=== PATIENT | female | born 1960 | race Caucasian/White ===

== ENCOUNTER 2022-12-01 09:46 | Outpatient (CLI) | payer OTHER, SELFPAY ==
--- NOTE | 2022-12-01 10:49 | ECG_ITS ---
Measurements Intervals [place] Rate: 68 P: 49 WI: 169 QRS: 46 QRSD: 94 T: 23 QT: 379 QTc: 405 Interpretive Statements SINUS RHYTHM DELAYED PRECORDIAL R/S TRANSITION BASELINE ARTIFACT- I, II, III, AVR, AVL, AVF, V1-V6 BORDERLINE ECG NO PREVIOUS ECG AVAILABLE FOR COMPARISON Electronically Signed On 12-01-2022 11:29:15 CDT by Nakul Mooney D.O.
[2022-12-01 11:42] LABS: Basophils Absolute Auto 0.1 K/mm3 (0.0-0.1); Basophils Percent Auto 0.9 % (0.2-1.2); Eosinophils Absolute Auto 0.4 K/mm3 (0-0.3); Hematocrit 41.2 % (37.0-47.0); Hemoglobin 13.4 g/dL (12.0-15.0); Immature Granulocyte Absolute 0.03 K/mm3 (0.00-0.031); Immature Granulocyte Percent A 0.4 % (0-0.5); Lymphocytes Absolute Auto 1.54 K/mm3 (0.9-3.2); Mean Corpuscular HGB Conc 32.5 g/dl (32-36); Mean Corpuscular Hemoglobin 30.6 pg (26-34); Mean Corpuscular Volume 94.1 fl (80-100); Mean Platelet Volume 12.4 fl (7.4-10.4); Monocytes Absolute Auto 0.8 K/mm3 (0.1-0.6); Monocytes Percent Auto 10.1 % (2.6-8.5); Neutrophils Absolute Auto 5.3 K/mm3 (1.3-6.7); Neutrophils Percent Auto 64.6 % (45.5-73.1); Platelet Count Result 226 k/mm3 (150-375); Red Blood Count 4.38 M/mm3 (4.2-5.4); Red Cell Distribution Width 12.8 % (11.5-14.5); White Blood Count 8.1 K/mm3 (4.5-10.0)
[2022-12-01 11:54] LABS: Alanine Aminotransferase 22 U/L (6-35); Albumin Level 4.3 g/dL (3.5-5.1); Alkaline Phosphatase 83 U/L (38-126); Anion Gap 5 mmol/L (8-16); Aspartate Amino Transferase 26 U/L (14-36); Bilirubin,Total 0.5 mg/dL (0.2-1.3); Blood Urea Nitrogen 13 mg/dL (7-17); Calcium 9.3 mg/dL (8.4-10.2); Carbon Dioxide 29 mmol/L (22-30); Chloride 105 mmol/L (98-107); Estimated Glomerular Filt Rate > 60; Glucose 79 mg/dL (65-110); Potassium 3.9 mmol/L (3.4-5.0); Sodium 139 mmol/L (137-145)
[2022-12-01 12:03] LABS: Prothrombin Time 13.1 Seconds (11.1-14.7)
[2022-12-01 12:04] LABS: Partial Thromboplastin Time 25.2 SECONDS (22.3-36.8)
== END 2022-12-01 09:47 | disposition home or self-care (01) ==
LOC: ANHSURGERY 09:55
PROVIDERS: PCP Internal Medicine; Visit Provider Urology
DX: Z01.818 Encounter for other preprocedural examination (principal); N81.2 Incomplete uterovaginal prolapse
CPT/HCPCS: 36415; 80053; 85025; 85610; 85730; 86850; 86900; 86901; 93005

== ENCOUNTER 2022-12-14 00:38 | Day surgery (SDC) | payer OTHER, SELFPAY ==
--- NOTE | 2022-12-01 09:51 | PC.NURSE ---
PRE-OP INSTRUCTIONS - PLEASE READ CAREFULLY Report to the Outpatient Waiting Room, entrance under the green pavilion located off [facility], at time _0600_ on date _12/14/22_. Planned Procedure Time: _0730_. PACK A SMALL OVERNIGHT BAG AND LEAVE IN THE CAR Time changes happen often and if your time is changed the preop area will call you the afternoon before. - You and your visitor will be asked to self-screen and do not enter if you have any COVID symptoms. - Only one visitor is requested with a max of two and NO children visitors are allowed at this time. - The patient visitor may be requested to leave or wait in car when not with patient due to distancing restrictions. - A mask is optional within the hospital at this time. -VISITING HOURS 8AM-8PM Patients may have clear liquids (water, carbonated beverages, clear teas, apple juice) until 3 hours prior to surgery (0430 AM) with a maximum of 20 ounces. - No food from midnight until time of surgery Take the following medications with a SIP of water the morning of surgery: _MONTELUKAST__ DO NOT STOP ANY OF YOUR OTHER PRESCRIPTION MEDICATIONS PRIOR TO SURGERY ?EXCEPT THE FOLLOWING Medications to discontinue DR. KYLE - _VITAMINS AND SUPPLEMENTS 7 DAYS PRIOR TO SURGERY, Date to take last dose_12/06/22_ Please no make-up, nail citizen of [place], hairspray, perfume, deodorant, or body powder the day of surgery. No jewelry (including any body piercings) or valuables the day of surgery, leave them at home. Please take a shower or bath the night before, or the morning of, surgery with an antibacterial soap. Wear comfortable, loose fitting clothing. - Jewelry must be removed prior to entering the operating room. Rings and piercings that are not removed may be cut off. - The hospital will not accept responsibility for valuables. - Please leave all valuables, including medications, at home the day of surgery. If you are going home after surgery, a licensed escort car driver must drive you home. - NO public transportation without another adult if you receive anesthesia. - We recommend that an adult stay with you for 24 hours following discharge. - We also recommend that you do not drive, make important decision, drink alcoholic beverages, or take any drugs that were not prescribed by your health care provider for at least 24 hours after your discharge time. Follow any additional instructions given to you from your surgeon. If you or anyone in your household have experienced Covid symptoms in the past week, please notify your surgeon or the nurse liaison at the phone number below for possible testing. Instructions given to _PATIENT_and asked if any additional questions and then verbalized understanding. Patient advised to call surgeon office or pre surgery nurse liaison [phone] if any additional questions.
[2022-12-01 10:13] VITALS: BP 132/52; PULSE 76; RESP 18; TEMP 37.1; O2SAT 99; BMI 25.2
--- NOTE | 2022-12-10 16:14 | P.HP_ITS ---
H&P: HPI History of Present Illness Date/Time: 12/10/22 16:14 Chief Complaint: uterine prolapse Narrative: a 62-year-old 1 para 1 admitted for robotic supracervical hysterectomy and bilateral salpingo-oophorectomy secondary to pelvic prolapse. She seen Dr. Becker use and agreement she is also scheduled to have sacral colpopexy done. Her she complains of bulge discomfort and pain. Risks and benefits have been reviewed PMFSH Social History Social History Smoking status: Never smoker Second hand tobacco smoke exposure: No Alcohol intake: current Alcohol use details: 2-3/WEEK Substance use: never Substance use type: does not use Living arrangements: with family Spiritual care concerns: No Meds Home Medications and Allergies Home Medications Medication Instructions Recorded Confirmed Type biotin 2,500 mcg capsule 2,500 mcg PO QAM 12/01/22 12/01/22 History calcium carb,cit ER 600 mg-vit D3 2 tablet PO QAM 12/01/22 12/01/22 History 12.5 mcg (500 unit) tablet,ext.rel (Citracal-D3 Slow Release) cholecalciferol (vitamin D3) 50 50 mcg PO DAILY 12/01/22 12/01/22 History mcg (2,000 unit) capsule famotidine 20 mg tablet 40 mg QAM 12/01/22 12/01/22 History (Zantac-360 (famotidine)) montelukast 10 mg tablet 10 mg PO QAM 12/01/22 12/01/22 History naproxen sodium 220 mg tablet 440 mg PO DAILY PRN Pain 12/01/22 12/01/22 History (Aleve) tacrolimus 0.03 % topical ointment See Rx Instructions .Route .COMPLEX 12/01/22 12/01/22 History Allergies Allergy/AdvReac Type Severity Reaction Status Date / Time adhesive tape AdvReac SKIN Verified 12/01/22 10:18 IRRITATION amoxicillin AdvReac UNKNOWN - Verified 12/01/22 10:18 A CHILD codeine AdvReac A CHILD Verified 12/01/22 10:18 - RASH? erythromycin base AdvReac Unknown - Verified 12/01/22 10:18 A CHILD Exam Const: General: cooperative, healthy appearing and comfortable Nutritional Appearance: average body habitus Orientation/consciousness: oriented to person, oriented to place and oriented to time HENMT: Head: normal to inspection Resp: Effort & Inspection: normal respiratory effort Cardio: Rate: regular rate Rhythm: regular rhythm Heart sounds: S1 normal heart sound present and S2 normal heart sound present GI: Inspection: normal to inspection : External Female Exam: normal external appearance Speculum Exam - Vagina: normal appearance of the vagina ( poles of the vagina and cervix at the opening of the vagina) Speculum Exam - Cervix: normal appearance of the ce rvix and Cervical os closed Bimanual exam- vagina & uterus: uterine size normal Bimanual Exam- Adnexa, other: normal adnexae Assessment and Plan Assessment and plan (1) Uterine prolapse: Code(s): N81.4 - Uterovaginal prolapse, unspecified Status: Acute Plan proceed with robotic supracervical hysterectomy and bilateral salpingo- oophorectomy. Dr. Becker will follow with the robotic sacral colpopexy
--- NOTE | 2022-12-12 13:15 | P.HP_ITS ---
H&P: HPI History of Present Illness Date/Time: 12/12/22 13:15 Chief Complaint: POP/EUGENIA Narrative: 62 you with uterine prolpase and stress incontinence. She desires surgical correction Review of Systems Review of Systems: All systems reviewed & are unremarkable except as noted in HPI and below [facility] Social History Social History Smoking status: Never smoker Second hand tobacco smoke exposure: No Alcohol intake: current Alcohol use details: 2-3/WEEK Substance use: never Substance use type: does not use Living arrangements: with family Spiritual care concerns: No Meds Home Medications and Allergies Home Medications Medication Instructions Recorded Confirmed Type biotin 2,500 mcg capsule 2,500 mcg PO QAM 12/01/22 12/01/22 History calcium carb,cit ER 600 mg-vit D3 2 tablet PO QAM 12/01/22 12/01/22 History 12.5 mcg (500 unit) tablet,ext.rel (Citracal-D3 Slow Release) cholecalciferol (vitamin D3) 50 50 mcg PO DAILY 12/01/22 12/01/22 History mcg (2,000 unit) capsule famotidine 20 mg tablet 40 mg QAM 12/01/22 12/01/22 History (Zantac-360 (famotidine)) montelukast 10 mg tablet 10 mg PO QAM 12/01/22 12/01/22 History naproxen sodium 220 mg tablet 440 mg PO DAILY PRN Pain 12/01/22 12/01/22 History (Aleve) tacrolimus 0.03 % topical ointment See Rx Instructions .Route .COMPLEX 12/01/22 12/01/22 History Allergies Allergy/AdvReac Type Severity Reaction Status Date / Time adhesive tape AdvReac SKIN Verified 12/01/22 10:18 IRRITATION amoxicillin AdvReac UNKNOWN - Verified 12/01/22 10:18 A CHILD codeine AdvReac A CHILD Verified 12/01/22 10:18 - RASH? erythromycin base AdvReac Unknown - Verified 12/01/22 10:18 A CHILD Exam Narrative: Thin NAD normal breathing + urethral mobility Anterior wall +2 [place] -1 Assessment and Plan Assessment and plan (1) Uterine prolapse: Code(s): N81.4 - Uterovaginal prolapse, unspecified Status: Acute (2) EUGENIA (stress urinary incontinence, female): Code(s): N39.3 - Stress incontinence (female) (male) Status: Acute Plan Robotic Colpopexy with sling. Risks, benifits, alternatives discussed
[2022-12-14] VITALS (22 sets, daily range): BP systolic 94–131; BP diastolic 51–88; PULSE 68–99; RESP 12–19; TEMP 36.1–37.7; O2SAT 95–100
[2022-12-14] MEDS: LACTATED RINGERS 1,000 ML 30 ML IV CONT ×2 (06:25→09:55)
[2022-12-14] MEDS: ACETAMINOPHEN 500 MG TABLET 1000 MG PO (06:26)
[2022-12-14] MEDS: KETOROLAC 15 MG/ML VIAL (*BKC) IV PUSH ×3 (06:26→23:55)
--- NOTE | 2022-12-14 06:51 | WPDANESEPPF ---
Anes - Initial Pre Proc Eval Procedure: Operation Date: 12/14/22 07:30 Proposed Procedures p Robotic Sacrocolpopexy, Urethral Sling - Demond Becker MD s Robotic Assisted Supracervical Hysterectomy, Bilateral Salpingo-oophorectomy - Sotero Mcnulty MD Date/Time: 12/14/22 06:51 Surgeon: Demond Becker MD Pre Op Diagnosis: incomplete uterovaginal prolapse, stress inconti Patient Data Age: 62 Gender: F Height: 1.63 m Weight: 66.8 kg Last Vital Signs Temp 37.1 C 12/01/22 10:13 Pulse 76 12/01/22 10:13 Resp 18 12/01/22 10:13 BP 132/52 L 12/01/22 10:13 Pulse Ox 99 12/01/22 10:13 O2 Del Method Room Air 12/01/22 10:13 Allergies Allergy/AdvReac Type Severity Reaction Status Date / Time adhesive tape AdvReac SKIN Verified 12/01/22 10:18 IRRITATION amoxicillin AdvReac UNKNOWN - Verified 12/01/22 10:18 A CHILD codeine AdvReac A CHILD Verified 12/01/22 10:18 - RASH? erythromycin base AdvReac Unknown - Verified 12/01/22 10:18 A CHILD Home Medications Medication Instructions Recorded Confirmed Type biotin 2,500 mcg capsule 2,500 mcg PO QAM 12/01/22 12/01/22 History calcium carb,cit ER 600 mg-vit D3 2 tablet PO QAM 12/01/22 12/01/22 History 12.5 mcg (500 unit) tablet,ext.rel (Citracal-D3 Slow Release) cholecalciferol (vitamin D3) 50 50 mcg PO DAILY 12/01/22 12/01/22 History mcg (2,000 unit) capsule famotidine 20 mg tablet 40 mg QAM 12/01/22 12/01/22 History (Zantac-360 (famotidine)) montelukast 10 mg tablet 10 mg PO QAM 12/01/22 12/01/22 History naproxen sodium 220 mg tablet 440 mg PO DAILY PRN Pain 12/01/22 12/01/22 History (Aleve) tacrolimus 0.03 % topical ointment See Rx Instructions .Route .COMPLEX 12/01/22 12/01/22 History Patient hx anesthesia problems: none Family hx anesthesia problems: none Results Review: All pre-operative results and documents have been reviewed as part of the pre-operative evaluation. [facility] Past Medical History Medical History (Updated 12/14/22 @ 06:52 by Nickolas Shultz MD) Asthma Uterine prolapse Social History Social History Smoking status: Never smoker Second hand tobacco smoke exposure: No Alcohol intake: current Alcohol use details: 2-3/WEEK Substance use: never Substance use type: does not use Living arrangements: with family Spiritual care concerns: No Anes - Eval Final PreProcedure Day of Procedure 12/14/22 06:51 Patient weight: normal Heart: regular rate and rhythm Lungs: clear to auscultation and normal air movement Airway: Mallampati scale class II Neurological: alert and oriented Last oral intake: >/= 8 hours ASA classification: II Emergent: no Anesthetic plan: proceed Anesthesia type and monitoring: general ETT Results Review: All pre-operative results and documents have been reviewed as part of the pre-operative evaluation. Informed Consent: The patient's anesthetic plan and its attendant risks and benefits were discussed with the patient/family/POA. Questions were solicited and answers provided to the satisfaction of the patient/family/POA.
--- NOTE | 2022-12-14 07:04 | WPDHPUPDATE1 ---
History and Physical Update Update Date/Time: 12/14/22 07:04 History and Physical has been reviewed, including an updated exam of the patient. There are NO changes in the patient's condition. Risks, benefits, and alternatives have been discussed and questions answered. Patient agrees to proceed with procedure.
--- NOTE | 2022-12-14 07:12 | WPDHPUPDATE1 ---
History and Physical Update Update Date/Time: 12/14/22 07:12 History and Physical has been reviewed, including an updated exam of the patient. There are NO changes in the patient's condition. Risks, benefits, and alternatives have been discussed and questions answered. Patient agrees to proceed with procedure.
[2022-12-14] MEDS: ceFAZolin 2 GM/D5W 50 ML 2 GM/50 ML BAG IVPB (07:28)
[2022-12-14] MEDS: metroNIDAZOLE 500 MG/ISO 100ML 500 MG/100 ML BAG 100 MG IVPB ×2 (07:38→16:45)
--- NOTE | 2022-12-14 08:11 | P.OP_ITS ---
Procedure Note - Detailed Date of Procedure 12/14/22 Pre-op Diagnosis incomplete uterovaginal prolapse, stress inconti Post-op Diagnosis Same Procedure Performed Robotic supracervical hysterectomy and bilateral salpingo-oophorectomy Surgeon Sotero Mcnulty MD Anesthesia General Indications a 62-year-old female with uterine prolapse stress urinary incontinence Findings small uterus it was almost completely prolapse. Small ovaries and tubes. Few adhesions from the colon to the left lateral sidewall which were loosely brought down. Description of Procedure Patient was prepped and draped in the normal sterile fashion placed dorsal lithotomy position. Under excellent general anesthetic the weighted speculum placed in posterior fornix vagina. Anterior lip of cervix grasped with single- tooth tenaculum. The Crespo's cannula inserted the cervix and attached to the single-tooth. These would be used later for uterine manipulation. Next the 16 [place] catheter was placed in bladder and drained of clear urine. The weighted speculum was. Dr. Becker proceeded to placed the ports and docked the robot please see his operative report for full details. From that point the left round ligament was grasped, burned, cut. Anterior bladder flap was by sharply dissecting the peritoneum and reflecting the bladder post caudally away from the uterus and cervix to the opposite round ligament was clamped, burned cut. Next the infundibulopelvic structures were skeletonized behind ovary. These were clamped, burned, cut brought to the level previously cut in like fashion the left ovary to the infundibulopelvic structure was skeletonized clamping as previously cut round ligament. Next the left cardinal and broad ligaments were skeletonized clamping burning cutting and hugging the cervix to avoid to lateral structures the uterine vessels were noted clamped, burned, cut. Like fashion cardinal broad ligaments right were serially skeletonized clamping burning cutting and hugging the cervix uterus until the uterine vessels could be seen on right. These were individually clamped,, cut. Blanching of the uterus was seen. A supracervical incision made and this was placed in the Endo-Catch up. Adhesions on colon to left lateral sidewall sharply dissected attached to help Dr. Lopez with the sacral colpopexy. Blood loss to this point was 5cc. All sponge, needle, instrument counts were correct. There were no immediate complications up to this point Estimated Blood Loss 5 Drains No Packing No Pathology Yes Complications No immediate complications Condition Stable Disposition No change
[2022-12-14] MEDS: BUPIVACAINE/EPINEPHRINE 0.25% 50 ML VIAL INFILTRATE (09:22)
--- NOTE | 2022-12-14 09:26 | SUR.OPER ---
ALPHONSE START TIME 3405
--- NOTE | 2022-12-14 09:59 | W.PM.PROC2 ---
Procedure Note - Detailed Date of Procedure 12/14/22 Pre-op Diagnosis incomplete uterovaginal prolapse, stress incontinence Post-op Diagnosis Same Procedure Performed Robotic assisted laparoscopic sacral colpopexy Urethral sling Cystoscopy Surgeon Demond Becker MD Hydrology Teacher josh powers Anesthesia General Indications A woman with uterine prolapse as well as stress incontinence. She desires surgical correction. She is here for the above. She understands risks of bleeding, infection, diskitis, damage to surrounding organs, bowel injury, bowel obstruction, mesh related complications including exposure and extrusion, postoperative voiding dysfunction including incontinence and retention, need for ancillary procedures, dyspareunia, recurrence of prolapse, and other perioperative intraoperative postoperative complications. She agrees to proceed. Findings See below Description of Procedure She was correctly identified. Informed consent obtained. She from the operating room. She was given general anesthesia. She was given appropriate perioperative antibiotics. She was placed a low lithotomy position. Pressure points were padded. A time-out performed. I marked out the skin 3 fingerbreadths cephalad to the umbilicus. I anesthetized the skin. I incised the skin. I dissected down to the fascia. I grasped the fascia with Belén clamps. I entered the fascia sharply in a Farrell type technique. I placed sutures for later fascial closure. I placed a midline trocar. I examined the abdomen. There is no sign of any injury. Under direct vision I placed 2 additional trocars in the right upper quadrant and 2 additional trocars the left upper quadrant. She was placed in steep Trendelenburg. The robot was docked. Her denture model maker completed their portion of the procedure. Please see that operative report for details. I then sat at the console. The Sizer in the vagina created plane on the anterior and posterior vaginal wall. I took great care not to injure the vagina, bladder, or rectum. I introduced the mesh into the abdomen. I sewed the anterior leaflet of mesh on the anterior vaginal wall. I sewed the posterior leaflet of mesh on the posterior vaginal wall. This was done with several sutures of 2 0 [place]. I reflected the colon laterally. I opened the posterior peritoneum over the sacral promontory. I carried this into the cul-de-sac. I freed up the edges for later retroperitonealization. I located the anterior longitudinal ligament the sacrum. I cleaned off all fatty tissues. I then tensioned my mesh appropriately. I did a vaginal exam the bedside. I assured prolapse reduction without undue tension. I then sewed the proximal leaflet of mesh onto the anterior longitudinal ligament of the sacrum with several sutures of 2 0 [place]. I then used a 2 0 Monocryl to completely and meticulously retroperitonealized all mesh. I allowed the colon to go back to its normal anatomic location. There is no sign of any impingement. The specimen was then removed. All ports removed. Fascia was tied down. An additional suture was used to close the fascia. Skin was closed with Monocryl and surgical glue. She was repositioned and prepped for urethral sling. I marked out the inner thigh incisions. I anesthetized the skin and made the incisions. I then anesthetized the anterior vaginal wall at the mid urethra. I made a 1 cm incision. I dissected out laterally taking great care not to injure the refilled vaginal wall. I passed the helical trocars. I did this 1st on the left and then on the right. This was done from the thigh incision towards the vaginal incision. Sling was connected to the trocars and brought out the thigh incision. I tensioned the sling appropriately. I cut and the plastic sheaths. I closed the incision with 2 0 Vicryl. I palpated the sulcus bilaterally to ensure there was no exposed mesh. I then performed cystoscopy. There w
[2022-12-14] MEDS: fentaNYL CITRATE INJ (*CRX) 100 MCG/2 ML VIAL 25 MCG IV PUSH ×7 (10:21→13:53)
[2022-12-14] MEDS: ONDANSETRON INJ 4 MG/2 ML VIAL IV PUSH (11:16)
--- NOTE | 2022-12-14 14:20 | PC.NURSE ---
This patient, Sharmin Lawson, was received from PACU on 12/14/22 at 1420. Patient/family oriented to unit policies and routines.
[2022-12-14] MEDS: KCL 20 MEQ/D5/0.45% SOD CHL 1,000 ML 100 ML IV CONT ×2 (14:37→23:49)
[2022-12-14] MEDS: ceFAZolin 1 GM/NS 50 ML 1 GM/50 ML BAG IVPB (16:04)
[2022-12-14] MEDS: HYDROcodone/acetaminophen (*CRX) 5-325 MG TABLET 1 TAB PO ×2 (20:09→23:55)
[2022-12-15 00:05] VITALS: BP 120/61; PULSE 66; RESP 16; TEMP 36.9; O2SAT 100
[2022-12-15] MEDS: metroNIDAZOLE 500 MG/ISO 100ML 500 MG/100 ML BAG 100 MG IVPB ×2 (00:39→09:00)
[2022-12-15] MEDS: HYDROcodone/acetaminophen (*CRX) 5-325 MG TABLET 1 TAB PO ×2 (03:50→09:42)
[2022-12-15 04:00] VITALS: BP 115/57; PULSE 71; RESP 16; TEMP 36.8; O2SAT 97
--- NOTE | 2022-12-15 05:37 | P.DS_ITS ---
DS: Admitting Diagnosis Discharge Date 12/15/2022 Admitting Diagnosis uterine prolapse/stress urinary incontinence DS: Discharge Diagnosis Discharge Diagnosis (1) Uterine prolapse: Code(s): N81.4 - Uterovaginal prolapse, unspecified Status: Acute (2) EUGENIA (stress urinary incontinence, female): Code(s): N39.3 - Stress incontinence (female) (male) Status: Acute DS: Summary Hospital Course Reason for hospitalization: patient was admitted for robotic supracervical hysterectomy bilateral salpingo- oophorectomy and sling as well as sacral colpopexy Hospital Course: patient was admitted for robotic supracervical hysterectomy bilateral salpingo- oophorectomy sacral colpopexy and urethral sling. Her hospital course u nremarkable. She remained afebrile. She was up, voiding without difficulty, eating regular diet, ambulating, generally without complaints. Time Spent with Patient Time attestation: Total time spent providing and/or coordinating discharge services: Exam Const: General: cooperative, healthy appearing, comfortable and well groomed Orientation/consciousness: oriented to person, oriented to place and oriented to time HENMT: Head: normal to inspection Chest: Chest palpation & inspection: normal inspection of the chest Resp: Effort & Inspection: normal respiratory effort Cardio: Rate: regular rate Rhythm: regular rhythm Heart sounds: S1 normal heart sound present and S2 normal heart sound present GI: Inspection: normal to inspection and incision ( Wounds clean dry and intact) Auscultation: normal bowel sounds DS: Data Data Completed and Pending Pending studies at discharge: Pending at discharge 12/14/22 08:14 Surgical [PTH] Routine Discharge Plan Discharge Patient Disposition: Home, Self-Care Discharge Instructions: No lifting >20lb, exercise for 6 weeks No tub bath or pool for 2 weeks No intercourse for 6 weeks Stand Alone Forms: General Discharge Instructions Follow-up/Referrals: Demond Becker MD [Physician] - ( 6 weeks as scheduled) Sotero Payne MD [Physician] - Discharge Medications: New docusate sodium [Colace] 100 mg capsule 100 mg PO BID Qty: 60 0RF hydrocodone-acetaminophen 5-325 mg tablet 1 tablet PO Q6H PRN (Reason: pain) Qty: 20 0RF Continued famotidine [Zantac-360 (famotidine)] 20 mg Tablet 40 mg QAM naproxen sodium [Aleve] 220 mg Tablet 440 mg PO DAILY PRN (Reason: Pain) montelukast 10 mg Tablet 10 mg PO QAM biotin 2,500 mcg Capsule 2,500 mcg PO QAM cholecalciferol (vitamin D3) 50 mcg (2,000 unit) Capsule 50 mcg PO DAILY calcium carb and citrate-vitD3 [Citracal-D3 Slow Release] 600 mg-12.5 mcg (500 unit) Tablet Extended Release 2 tablet PO QAM tacrolimus 0.03 % ointment See Rx Instructions .ROUTE .COMPLEX Rx Instructions: APPLY SMALL AMOUNT TO OUTER EYELID DAILY
--- NOTE | 2022-12-15 05:50 | PM.GYNPNOP ---
BIOCHEMISTRY TECHNICIAN - A/P Postoperative Procedures: Procedures Operation Date: 12/14/22 07:30 Actual Procedure Side Surgeon p Robotic Sacrocolpopexy, Urethral Sling Not Applicable Demond Becker MD s Robotic Assisted Supracervical Hysterectomy, Bilateral Salpingo-oophorectomy Bilateral Sotero Mcnulty MD Postoperative day: 1 Postoperative status: doing well Postoperative plan: routine post-op care, see orders, advance diet and discharge Time Spent With Patient Time: Total time spent is greater than 50% in coordination of care (as documented) at patient's floor/unit and/or counseling patient: Time with patient: less than 15 minutes BIOCHEMISTRY TECHNICIAN- PN:Subj Post-Op Subjective Date/time seen: 12/15/22 05:50 Subjective: patient has no complaints, patient desires discharge, pain is well controlled and patient is tolerating oral intake Exam Const: General: cooperative, healthy appearing, comfortable and well groomed Orientation/consciousness: oriented to person, oriented to place and oriented to time HENMT: Head: normal to inspection Resp: Effort & Inspection: normal respiratory effort Cardio: Rate: regular rate Rhythm: regular rhythm Heart sounds: S1 normal heart sound present and S2 normal heart sound present GI: Inspection: normal to inspection and incision ( wounds are clean dry and intact) BIOCHEMISTRY TECHNICIAN - PN: Obj Data Vital Signs Vital Signs: Vital Signs - 24 hr 12/14/22 06:07 12/14/22 09:55 12/14/22 10:10 Temperature 97.3 F L 97 F L Pulse Rate 82 89 78 Respiratory Rate 18 13 18 Blood Pressure 131/56 L 119/70 122/88 Pulse Oximetry 100 100 100 Oxygen Delivery Room Air Simple Face Mask Simple Face Mask Oxygen Flow Rate 6 6 12/14/22 10:25 12/14/22 10:40 12/14/22 10:55 Temperature Pulse Rate 68 71 71 Respiratory Rate 16 13 16 Blood Pressure 95/54 L 104/53 L 101/53 L Pulse Oximetry 97 99 98 Oxygen Delivery Room Air Room Air Room Air Oxygen Flow Rate 12/14/22 11:10 12/14/22 11:24 12/14/22 11:35 Temperature Pulse Rate 69 76 74 Respiratory Rate 15 13 14 Blood Pressure 94/53 L 94/53 L 101/51 L Pulse Oximetry 95 97 97 Oxygen Delivery Room Air Room Air Room Air Oxygen Flow Rate 12/14/22 11:49 12/14/22 12:00 12/14/22 12:15 Temperature Pulse Rate 75 95 78 Respiratory Rate 15 19 12 Blood Pressure 100/51 L 101/52 L 97/59 L Pulse Oximetry 96 97 95 Oxygen Delivery Room Air Room Air Oxygen Flow Rate 12/14/22 12:30 12/14/22 12:45 12/14/22 13:00 Temperature Pulse Rate 81 88 91 Respiratory Rate 15 16 16 Blood Pressure 105/54 L 104/62 107/57 L Pulse Oximetry 95 95 95 Oxygen Delivery Room Air Room Air Room Air Oxygen Flow Rate 12/14/22 13:15 12/14/22 13:30 12/14/22 13:45 Temperature Pulse Rate 99 84 82 Respiratory Rate 18 14 17 Blood Pressure 113/59 L 110/61 114/60 Pulse Oximetry 95 95 96 Oxygen Delivery Room Air Room Air Room Air Oxygen Flow Rate 12/14/22 14:00 12/14/22 14:30 12/14/22 17:30 Temperature 99.8 F H 98.8 F Pulse Rate 83 79 79 Respiratory Rate 12 16 18 Blood Pressure 109/62 111/53 L 125/63 Pulse Oximetry 95 96 99 Oxygen Delivery Room Air Oxygen Flow Rate 12/14/22 19:50 12/14/22 19:50 12/15/22 00:05 Temperature 99.0 F 98.4 F Pulse Rate 91 91 66 Respiratory Rate 16 16 16 Blood Pressure 111/60 120/61 Pulse Oximetry 96 96 100 Oxygen Delivery Room Air Oxygen Flow Rate 12/15/22 04:00 Temperature 98.2 F Pulse Rate 71 Respiratory Rate 16 Blood Pressure 115/57 L Pulse Oximetry 97 Oxygen Delivery Oxygen Flow Rate Intake/Output Intake/Output: Intake & Output 12/12/22 12/13/22 12/14/22 12/15/22 23:59 23:59 23:59 23:59 Intake Total 2535 1110 Output Total 1190 1500 Balance 1345 -390 Meds/Results Medications: Active Medications Generic Name Dose Route Start Last Admin Trade Name Freq PRN Reason Stop Dose Admin Acetaminophen 650 mg 12/14/22 14:16 Acetaminophen 325 Mg Tablet PO Q4H PRN Mild Pain
[2022-12-15] MEDS: ceFAZolin 1 GM/NS 50 ML 1 GM/50 ML BAG IVPB ×2 (07:52)
[2022-12-15 08:10] VITALS: BP 124/62; PULSE 70; RESP 18; TEMP 37.1; O2SAT 99
[2022-12-15] MEDS: FAMOTIDINE 20 MG TABLET 40 MG PO (09:42)
[2022-12-15] MEDS: MONTELUKAST SODIUM 10 MG TABLET PO (09:42)
[2022-12-15] MEDS: ENOXAPARIN 30 MG/0.3 ML SYRINGE SUB-Q (09:42)
[2022-12-15] MEDS: TACROLIMUS 0.03% 1 APPLIC TOPICAL (09:43)
[2022-12-15] MEDS: DOCUSATE SODIUM 100 MG CAPSULE PO (09:45)
--- NOTE | 2022-12-15 09:48 | WPDANESPN ---
Anes - Prog Note Post-Op Date/Time: 12/15/22 09:48 Cardiovascular status: normal Respiratory status: normal Airway patency: baseline Mental status: baseline Post-Op hydration status: normal Vital Signs: Last Vital Signs Temp 98.8 F 12/15/22 08:10 Pulse 70 12/15/22 08:10 Resp 18 12/15/22 08:10 BP 124/62 12/15/22 08:10 Pulse Ox 99 12/15/22 08:10 O2 Del Method Room Air 12/14/22 19:50 O2 Flow Rate 6 12/14/22 10:10 Pain Score (VAS): 0 I/O: Intake & Output 12/14/22 12/15/22 12/15/22 23:59 07:59 15:59 Intake Total 1835 1110 Output Total 950 1650 Balance 885 -540 Post-procedural complaints: none Patient Feedback: Patient satisfied with anesthetic care.
== END 2022-12-15 11:28 | disposition home or self-care (01) ==
LOC: ANHSURGERY 10:04 → ANHOB2 14:25
PROVIDERS: Obstetrics & Gynecology; PCP Internal Medicine; Visit Provider Urology
PROC: (CPT 57425; principal; 2022-12-14 07:30)
PROC: 0UT94ZZ Resection of Uterus, Percutaneous Endoscopic Approach (ICD-10-PCS; CPT 57425; 2022-12-14 07:30)
DX: N81.2 Incomplete uterovaginal prolapse (principal); N39.3 Stress incontinence (female) (male); N73.6 Female pelvic peritoneal adhesions (postinfective); D25.9 Leiomyoma of uterus, unspecified; J45.909 Unspecified asthma, uncomplicated
CPT/HCPCS: 57425; 57288; 58542; S2900 ×2; 88307; 99199; A9270; C1758; C1769; C1771; C1781; C9290; J0690; J1100; J1170; J1650; J1885; J2250; J2405; J2704; J3010; J3480; J7030; J7120